=== PATIENT | male | born 1995 | race Two or more races ===

== ENCOUNTER → 2024-06-03 | Outpatient (BNVA) | payer SELFPAY | END | disposition home or self-care (01) | PROVIDERS: Visit Provider Urology | DX: N41.1 Chronic prostatitis (principal); R31.29 Other microscopic hematuria; Z87.440 Personal history of urinary (tract) infections; N40.0 Benign prostatic hyperplasia without lower urinary tract symptoms | CPT/HCPCS: 81003; 99202; G0463 ==

== ENCOUNTER → 2024-06-29 | Outpatient (BNVA) | payer SELFPAY | END | disposition home or self-care (01) | PROVIDERS: Visit Provider Urology | DX: N41.1 Chronic prostatitis (principal); N40.0 Benign prostatic hyperplasia without lower urinary tract symptoms; Z87.440 Personal history of urinary (tract) infections; R31.9 Hematuria, unspecified; R80.9 Proteinuria, unspecified | CPT/HCPCS: 81003; 99212; G0463 ==